=== PATIENT | female | born 1990 | race Caucasian/White ===

== ENCOUNTER 2021-03-17 07:36 | Emergency (ER) | payer BC ==
--- NOTE | 2021-03-17 08:03 | EDPHYS ---
Physician Documentation [facility] Name: Karo Saab Age: 30 yrs Sex: Female : 1990 Arrival Date: 03/17/2021 Time: 07:39 Bed 6 Private MD: ED Physician Cruzito Mei HPI: 03/17 07:57 This 30 yrs old Female presents to ER via Ambulatory with complaints of Ear rn Pain. 07:57 The patient presents with pain, moderate. The complaints affect the right ear and left rn ear. 07:57 Onset: The symptoms/episode began/occurred 3 day(s) ago. Modifying factors: The rn symptoms are alleviated by nothing, the symptoms are aggravated by nothing. Associated signs and symptoms: Pertinent positives: Sinus pressure. Severity of symptoms: At their worst the symptoms were moderate in the emergency department the symptoms are unchanged. The patient has not experienced similar symptoms in the past. The patient has not recently seen a physician. Patient reports bilateral ear pain that began 3 days ago. Reports it started a few days earlier prior to trip to [place] with sore throat and some inflammation on the back of the throat. Denies any trauma to ears. Denies fever. Reports feels like there is pressure behind both ears and having trouble hearing. Denies any head injury. Denies headache or focal neurological complaints.. 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 Flu vaccine status is unknown. - Social history:: Smoking status: Patient reports the use of cigarette tobacco products, smokes one pack cigarettes per day. - Family history:: not pertinent. - Hospitalizations: : No recent hospitalization is reported. ROS: 07:57 Constitutional: Negative for fever, chills, and weight loss, Eyes: Negative for injury, rn pain, redness, and discharge, ENT: Positive for bilateral ear pain Neck: Negative for injury, pain, and swelling, Cardiovascular: Negative for chest pain, palpitations, and edema, Respiratory: Negative for shortness of breath, cough, wheezing, and pleuritic chest pain, Abdomen/GI: Negative for abdominal pain, nausea, vomiting, diarrhea, and constipation, Back: Negative for injury and pain, MS/Extremity: Negative for injury and deformity, Skin: Negative for injury, rash, and discoloration, Neuro: Negative for headache, weakness, numbness, tingling, and seizure. Exam: 07:57 Constitutional: This is a well developed, well nourished patient who is awake, alert, rn and in no acute distress. Head/Face: Normocephalic, atraumatic. Eyes: Periorbital areas with no swelling, redness, or edema. ENT: Tympanic membranes are normal and external auditory canals are clear. No stridor Neck: Trachea midline, no masses palpated, and no cervical lymphadenopathy. Supple, full range of motion without nuchal rigidity, or vertebral point tenderness. No Meningismus. Cardiovascular: Regular rate and rhythm. No pulse deficits. Respiratory: No increased work of breathing, no retractions or nasal flaring. Skin: Warm, dry with normal turgor. Normal color with no rashes, no lesions, and no evidence of cellulitis. Neuro: Awake and alert, GCS 15. Motor strength 5/5 in all extremities. Cerebellar exam normal. Normal gait. Vital Signs: 07:41 BP 165 / 122; Resp 17; Temp 97.6; Pulse Ox 99% ; Weight 122.47 kg; Height 5 ft. 7 in. ll1 (170.18 cm); Pain 7/10; 07:41 Body Mass Index 42.29 (122.47 kg, 170.18 cm) ll1 MDM: 07:48 Patient medically screened. rn 07:57 Differential diagnosis: otitis media, acute otalgia, cerumen impaction, serotympanum, rn Sinusitis. Data reviewed: vital signs, nurses notes, and as a result, I will discharge patient. Counseling: I had a detailed discussion with the patient and/or guardian regarding: the historical points, exam findings, and any diagnostic results supporting the discharge/admit diagnosis, the need for outpatient follow up, to return to the emergency department if symptoms worsen or persist or if there are any questions or concerns that arise at home. Special discussion: I discussed with the patient/guardian in detail that at this point there is no indication for admission to the hospital. It is understood, however, that if the symptoms persist or worsen the patient needs to return immediately for re-evaluation. Administered Medications: No medications were administered Disposition Summary: 03/17/21 08:02 Discharge Ordered Location: Home rn Problem: new rn Symptoms: are unchanged rn Condition: Stable rn Diagnosis - Otalgia, bilateral rn Followup: rn - With: Private Physician - When: As needed - Reason: Recheck today's complaints, Re-evaluation by your physician Discharge Instructions: - Discharge Summary Sheet rn - Earache, Adult rn Forms: - Medication Reconciliation Form rn - Thank You Letter rn - Antibiotic internal medicine physician assistant - Prescription Opioid Use rn Prescriptions: - Zithromax Z-José Antonio 250 mg Oral Tablet - take 1 tablet by ORAL route as directed for 5 days Day 1 - take two (2) tablets rn one time. Day 2, 3, 4 , 5 take one (1) tablet once daily.; 6 tablet; Refills: 0, Product Selection Permitted Signatures: Cruzito Mei MD MD rn Lewis, Lynsay, RN RN 1
--- NOTE | 2021-03-17 08:03 | ER ---
Nurse's Notes [facility] Name: Karo Saab Age: 30 yrs Sex: Female : 1990 Arrival Date: 03/17/2021 Time: 07:39 Bed 6 Private MD: Diagnosis: Otalgia, bilateral Presentation: 03/17 07:41 Chief complaint: Patient states: Bilateral ear pain since Monday after flight home from [address] Slight congestion. No known fever. Coronavirus screen: Vaccine status: Patient reports being unvaccinated. Client denies travel out of the [place] in the last 14 days. congestion, Client presents with at least one sign or symptom that may indicate coronavirus-19. Standard/surgical mask placed on the client. Ebola Screen: Patient denies travel to an Ebola-affected area in the 21 days before illness onset. Initial Sepsis Screen: Does the patient meet any 2 criteria? No. Patient's initial sepsis screen is negative. Does the patient have a suspected source of infection? Yes: Other: ear. Risk Assessment: Do you want to hurt yourself or someone else? Patient reports no desire to harm self or others. Onset of symptoms was March 14, 2021. 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 Flu vaccine status is unknown. - Social history:: Smoking status: Patient reports the use of cigarette tobacco products, smokes one pack cigarettes per day. - Family history:: not pertinent. - Hospitalizations: : No recent hospitalization is reported. Screenin:51 Abuse screen: Denies threats or abuse. Nutritional screening: No deficits noted. ap3 Tuberculosis screening: No symptoms or risk factors identified. Fall Risk None identified. Assessment: 07:49 General: Appears in no apparent distress. comfortable, Behavior is calm, cooperative, ap3 appropriate for age. Pain: Complains of pain in right ear and left ear Pain began suddenly, Monday during the flight home-upon descent into [place]. Neuro: Level of Consciousness is awake, alert, obeys commands, Oriented to person, place, time, situation, Speech is normal. Cardiovascular: Patient's skin is warm and dry. Respiratory: Airway is patent. EENT: Reports nasal congestion since the weekend. Vital Signs: 07:41 BP 165 / 122; Resp 17; Temp 97.6; Pulse Ox 99% ; Weight 122.47 kg; Height 5 ft. 7 in. ll1 (170.18 cm); Pain 11/21; 07:41 Body Mass Index 42.29 (122.47 kg, 170.18 cm) 1 ED Course: 07:39 Patient arrived in ED. as 07:40 Artie Humphries PA is PHCP. beth 07:40 Cruzito Mei MD is Attending Physician. [facility] 07:41 Arm band placed on. ll1 07:45 Triage completed. ll1 07:47 Patient placed in an exam room, on a stretcher. ll1 07:49 Lady Soliman, NASREEN is Primary Nurse. ap3 07:51 Patient has correct armband on for positive identification. Call light in reach. Pulse ap3 ox on. NIBP on. Door closed. Noise minimized. 08:10 No provider procedures requiring assistance completed. Patient did not have IV access ap3 during this emergency room visit. Administered Medications: No medications were administered Outcome: 08:02 Discharge ordered by . rn 08:10 Discharged to home ambulatory. ap3 08:10 Condition: good 08:10 Discharge instructions given to patient, Instructed on discharge instructions, follow up and referral plans. medication usage, Demonstrated understanding of instructions, follow-up care, medications, Prescriptions given X 1. 08:11 Patient left the ED. ap3 Signatures: Artie Humphries PA PA jmm Martinez, Amelia as Nieto, Roman, MD MD rn Prokisch, Amanda, RN RN ap3 Kamini Hensley RN RN [facility]
[2021-03-17 08:18] VITALS: BP 165/122; TEMP 97.6; O2SAT 99
== END 2021-03-17 08:11 | disposition home or self-care (01) ==
LOC: ER 07:36
DX: H92.03 Otalgia, bilateral (principal); F17.210 Nicotine dependence, cigarettes, uncomplicated; Z88.1 Allergy status to other antibiotic agents; Z88.8 Allergy status to other drugs, medicaments and biological substances
CPT/HCPCS: 99283

== ENCOUNTER → 2023-06-27 | Emergency (ER) | payer BC ==
[~2023-06-27] MED LIST: HYDROCODONE/APAP 10/325 TAB ONE; IBUPROFEN 400 MG TAB ONE; NA CHLORIDE 0.9% 1,000 ML ONE
[2023-06-27 05:13] LABS: Absolute Lymphocytes (CBC) 2.1 K/uL (0.7-4.9); Hematocrit 42.2 % (36.0-45.0); Lymphocytes % 12.9 % (15.3-44.8); MCV 88.5 fL (80-100); MPV 8.7 fL (7.6-11.3); Platelets 261 thou/uL (152-406); RBC Red Blood Cell Count 4.76 M/uL (3.86-4.86)
[2023-06-27 05:24] LABS: Urine Bacteria None Seen /HPF (<20); Urine Bilirubin NEGATIVE (Negative); Urine Blood 3+ (OVER) (Negative); Urine Clarity Turbid (Clear); Urine Color Yellow (Yellow); Urine Glucose NEGATIVE (Negative); Urine Mucus Slight /HPF (None Seen); Urine Protein TRACE (Negative); Urine RBC >50 /HPF (None Seen); Urine Urobilinogen Normal (Normal)
[2023-06-27 05:31] LABS: Albumin 3.3 g/dL (3.4-5.0); Bilirubin Total 0.2 mg/dL (0.2-1.0); Potassium 4.5 mEq/L (3.5-5.1); Protein, Total 7.1 g/dL (6.4-8.2)
--- NOTE | 2023-06-27 07:36 | EDPHYS ---
Physician Documentation [facility] Name: Karo Harrell Age: 33 yrs Sex: Female : 1990 Arrival Date: 06/27/2023 Time: 04:07 Bed 14 Private MD: ED Physician Edgardo Aly HPI: 06/27 04:28 This 33 yrs old Female presents to ER via Unassigned with complaints of sp4 Abdominal Pain. 04:28 History of cholecystectomy 06/21/2022. sp4 07:30 Patient at this time takes metronidazole, ciprofloxacin daily and hydrocodone PRN. sp4 20:21 Patient states she developed sharp right upper quadrant abdominal pain. Patient has had sp4 recent admission for acute cholecystitis which was determined to be a calculus cholecystitis and cholecystectomy 06/21/[address] Morris . 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 Flu vaccine is not up to date. - Social history:: Smoking status: Patient reports the use of cigarette tobacco products, denies chronic smoking, but will smoke occasionally. - Family history:: not pertinent. ROS: 20:19 Constitutional: Negative for fever, chills, and weight loss, Positive RUQ abdominal sp4 pain 20:19 All other systems are negative, Exam: 20:21 Constitutional: This is a well developed, well nourished patient who is awake, alert, sp4 and in no acute distress. Head/Face: Normocephalic, atraumatic. Eyes: Pupils equal round and reactive to light, extra-ocular motions intact. Lids and lashes normal. Conjunctiva and sclera are not injected. Cornea within normal limits. Periorbital areas with no swelling, redness, or edema. ENT: Nares patent. No nasal discharge, no septal abnormalities noted. Tympanic membranes are normal and external auditory canals are clear. Oropharynx with no redness, swelling, or masses, exudates, or evidence of obstruction, uvula midline. Mucous membranes moist. Neck: Trachea midline, no thyromegaly or masses palpated, and no cervical lymphadenopathy. Supple, full range of motion without nuchal rigidity, or vertebral point tenderness. Chest/axilla: Normal chest wall appearance and motion. Nontender with no deformity. No lesions are appreciated. Cardiovascular: Regular rate and rhythm with a normal S1 and S2. No gallops, murmurs, or rubs. Normal PMI, no JVD. No pulse deficits. Respiratory: Lungs have equal breath sounds bilaterally, clear to auscultation and percussion. No rales, rhonchi or wheezes noted. No increased work of breathing, no retractions or nasal flaring. Abdomen/GI: Soft, with normal bowel sounds. No distension or tympany. No guarding or rebound. Positive right upper quadrant tenderness recent postop incisions after cholecystectomy. Back: No spinal tenderness. No costovertebral tenderness. Skin: Warm, dry with normal turgor. Normal color with no rashes, no lesions, and no evidence of cellulitis. MS/ Extremity: Pulses equal, no cyanosis. Neurovascular intact. Full, normal range of motion. Neuro: Awake and alert, GCS 15, oriented to person, place, time, and situation. Cranial nerves II-XII grossly intact. Motor strength 5/5 in all extremities. Sensory grossly intact. Psych: Awake, alert, with orientation to person, place and time. Behavior, mood, and affect are within normal limits Vital Signs: 04:29 BP 118 / 54; Pulse 87; Resp 16; Temp 98.1(O); Pulse Ox 94% on R/A; Weight 120.2 kg (R); km8 Height 5 ft. 7 in. (R); Pain 8/10; 05:00 BP 131 / 79; Pulse 70; Resp 16; Pulse Ox 91% on R/A; km8 06:09 BP 136 / 83; Pulse 79; Resp 16; Pulse Ox 94% on R/A; km8 07:27 BP 141 / 81; Pulse 70; Resp 18; Pulse Ox 95% on R/A; db 04:29 Body Mass Index 41.50 (120.20 kg, 170.18 cm) km8 04:29 Pain Scale: Adult km8 Alton Coma Score: 04:37 Eye Response: spontaneous(4). Motor Response: obeys commands(6). Verbal Response: km8 oriented(5). Total: 15. MDM: 04:30 Patient medically screened. sp4 07:25 ED course: CLINICAL HISTORY: ABD PAIN COMPARISON: 06/19/2023. 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 FINDINGS: Lower lungs are clear. Abdomen: Liver is fatty in attenuation. There is no biliary dilatation. Cholecystectomy was performed. There is mild stranding within the cholecystectomy fossa. There is no associated postoperative fluid collection. The pancreas and spleen are normal in appearance. The adrenal glands and kidneys are unremarkable. Abdominal aorta is normal in course and caliber without aneurysm. There is no free air. There is no retroperitoneal adenopathy. Pelvis: There is no bowel obstruction. Urinary bladder is unremarkable. There is no free fluid. The uterus is normal in size. Appendix is normal. There is minimal air within the abdominal fat from presumed trocar placement. Skeleton: There are no acute osseous findings. No suspicious bony lesions. IMPRESSION: Expected postoperative appearance. No acute inflammatory process.. 07:31 Differential Diagnosis altered mental status, sepsis, flu. Data reviewed: vital signs, sp4 nurses notes, old medical records, lab test result(s), radiologic studies. Consideration of Admission/Observation Escalation of care including admission/observation considered. ED course: Patient has no signs of emergent findings on a CAT scan. Advise bedrest and clear liquid diet for the next 12 hours . Patient advised to continue ciprofloxacin and Flagyl also as needed hydrocodone. . 06/27 04:30 Order name: CBC with Diff; Complete Time: 07:25 sp4 06/27 04:30 Order name: CMP; Complete Time: 07:25 sp4 06/27 04:30 Order name: Lipase; Complete Time: 07:25 sp4 06/27 04:30 Order name: Test, Urine; Complete Time: 07:25 sp4 06/27 04:30 Order name: Urinalysis w/ reflexes; Complete Time: 07:25 sp4 06/27 04:38 Order name: CT Abd/Pelvis - IV Contrast Only sp4 06/27 04:30 Order name: IV Saline Lock; Complete Time: 04:53 sp4 06/27 04:30 Order name: Labs collected and sent; Complete Time: 04:53 sp4 Administered Medications: 05:00 Drug: NS 0.9% IV 1000 ml IV at 1 bolus Per protocol; 1000 mL bolus Route: IV; Rate: 1 km8 bolus; Site: right wrist; 07:55 Follow up: Response: No adverse reaction; IV Status: Completed infusion; IV Intake: db 1000ml 07:40 Drug: [place] PO 10 mg-325 mg 1 tabs PO once Route: PO; db 07:55 Follow up: Response: No adverse reaction db 07:40 Drug: Ibuprofen PO 800 mg PO once Route: PO; db 07:55 Follow up: Response: No adverse reaction db Disposition: 20:24 Chart complete. sp4 Disposition Summary: 06/27/23 07:36 Discharge Ordered Notes: Please continue all home medications as prescribed. Location: Home sp4 Problem: new sp4 Symptoms: have improved sp4 Condition: Stable sp4 Diagnosis - Upper abdominal pain, unspecified sp4 - Acute postoperative abdominal pain sp4 Followup: sp4 - With: Aleks Morris MD - When: 1 - 2 days - Reason: Recheck today's complaints Discharge Instructions: - Cholecystostomy, Care After sp4 - Discharge Summary Sheet km8 Forms: - Patient Portal Instructions sp4 Signatures: Dispatcher [employer] Yvette Keys RN RN Edgardo Bahena MD MD sp4 Christine Portillo RN RN km8
--- NOTE | 2023-06-27 07:36 | ER ---
Nurse's Notes [facility] Name: Karo Harrell Age: 33 yrs Sex: Female : 1990 Arrival Date: 06/27/2023 Time: 04:07 Bed 14 Private MD: Diagnosis: Upper abdominal pain, unspecified;Acute postoperative abdominal pain Presentation: 06/27 04:29 Chief complaint: Patient states: pt reports sharp pain under right breast starting km8 yesterday and getting worse; pt had cholecystectomy about 1 week ago; denies any other symptoms. Coronavirus screen: Client denies travel out of the [place] in the last 14 days. Ebola Screen: No symptoms or risks identified at this time. Initial Sepsis Screen: Does the patient meet any 2 criteria? No. Patient's initial sepsis screen is negative. Does the patient have a suspected source of infection? No. Patient's initial sepsis screen is negative. Risk Assessment: Do you want to hurt yourself or someone else? Patient reports no desire to harm self or others. Onset of symptoms was June 26, 2023. 04:29 Method Of Arrival: Ambulatory km8 04:29 Acuity: FLORENCIA 3 km8 Triage Assessment: 04:32 General: Appears in no apparent distress. comfortable, Behavior is calm, cooperative, km8 appropriate for age. Pain: Complains of pain in right breast Pain currently is 8 out of 10 on a pain scale. Quality of pain is described as sharp, Pain began gradually. EENT: No signs and/or symptoms were reported regarding the EENT system. Neuro: Level of Consciousness is awake, alert, obeys commands, Oriented to person, place, time, situation. Cardiovascular: Denies chest pain, shortness of breath, Capillary refill < 3 seconds Patient's skin is warm and dry. Respiratory: Airway is patent Respiratory effort is even, unlabored, Respiratory pattern is regular, symmetrical. GI: Abdomen is non-distended, Reports upper abdominal pain. : No signs and/or symptoms were reported regarding the genitourinary system. Derm: No signs and/or symptoms reported regarding the dermatologic system. Skin is intact, is healthy with good turgor, Skin is dry, Skin is pink, warm \T\ dry. normal, Skin temperature is warm. Musculoskeletal: No signs and/or symptoms reported regarding the musculoskeletal system. Circulation, motion, and sensation intact. Range of motion: intact in all extremities. 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 Flu vaccine is not up to date. - Social history:: Smoking status: Patient reports the use of cigarette tobacco products, denies chronic smoking, but will smoke occasionally. - Family history:: not pertinent. Screenin:37 [facility] ED Fall Risk Assessment (Adult) History of falling in the last 3 months, km8 including since admission No falls in past 3 months (0 pts) Confusion or Disorientation No (0 pts) Intoxicated or Sedated No (0 pts) Impaired Gait No (0 pts) Mobility Assist Device Used No (0 pt) Altered Elimination No (0 pt) Score/Fall Risk Level 0 - 2 = Low Risk Oriented to surroundings, Maintained a safe environment, Educated pt \T\ family on fall prevention, incl call for assistance when getting out of bed, Assessed \T\ reinforced patient's understanding of fall precautions. Abuse screen: Denies threats or abuse. Denies injuries from another. Nutritional screening: No deficits noted. Tuberculosis screening: No symptoms or risk factors identified. Assessment: 04:37 General: see triage notes/assessment. 8 05:40 Reassessment: Patient appears in no apparent distress at this time. No changes from km8 previously documented assessment. Patient and/or family updated on plan of care and expected duration. Pain level reassessed. Patient is alert, oriented x 3, equal unlabored respirations, skin warm/dry/pink. 06:13 Reassessment: Patient and/or family updated on plan of care and expected duration. Pain ha1 level reassessed. Patient is alert, oriented x 3, equal unlabored respirations, skin warm/dry/pink. back from CT. 07:06 Reassessment: Patient appears in no apparent distress at this time. No changes from km8 previously documented assessment. Patient and/or family updated on plan of care and expected duration. Pain level reassessed. Patient is alert, oriented x 3, equal unlabored respirations, skin warm/dry/pink. 07:40 Reassessment: Patient appears in no apparent distress at this time. Patient and/or db family updated on plan of care and expected duration. Pain level reassessed. Patient is alert, oriented x 3, equal unlabored respirations, skin warm/dry/pink. Neuro: Level of Consciousness is awake, alert, obeys commands, Oriented to person, place, time, situation. Respiratory: Airway is patent Respiratory effort is even, unlabored, Respiratory pattern is regular, symmetrical. Vital Signs: 04:29 BP 118 / 54; Pulse 87; Resp 16; Temp 98.1(O); Pulse Ox 94% on R/A; Weight 120.2 kg (R); km8 Height 5 ft. 7 in. (R); Pain 8/10; 05:00 BP 131 / 79; Pulse 70; Resp 16; Pulse Ox 91% on R/A; km8 06:09 BP 136 / 83; Pulse 79; Resp 16; Pulse Ox 94% on R/A; km8 07:27 BP 141 / 81; Pulse 70; Resp 18; Pulse Ox 95% on R/A; db 04:29 Body Mass Index 41.50 (120.20 kg, 170.18 cm) km8 04:29 Pain Scale: Adult km8 [place] Coma Score: 04:37 Eye Response: spontaneous(4). Motor Response: obeys commands(6). Verbal Response: km8 oriented(5). Total: 15. ED Course: 04:11 Patient arrived in ED. gm2 04:21 Edgardo Aly MD is Attending Physician. sp4 04:29 Christine Portillo, NASREEN is Primary Nurse. km8 04:32 Triage completed. km8 04:32 Arm band placed on right wrist. km8 04:37 Patient has correct armband on for positive identification. Placed in gown. Bed in low km8 position. Call light in reach. Side rails up X 1. Pulse ox on. NIBP on. 04:37 No provider procedures requiring assistance completed. Patient maintains SpO2 km8 saturation greater than 95% on room air. 04:53 CBC with Diff Sent. ha1 04:53 CMP Sent. ha1 04:53 Lipase Sent. ha1 04:53 Inserted saline lock: 22 gauge in right wrist, using aseptic technique. Blood collected.ha1 06:22 CT Abd/Pelvis - IV Contrast Only In Process Unspecified. EDMS 07:35 Aleks Morris MD is Referral Physician. sp4 07:53 Provided Education on: DISCHARGE. db 07:53 IV discontinued, intact, bleeding controlled, No redness/swelling at site. db Administered Medications: 05:00 Drug: NS 0.9% IV 1000 ml IV at 1 bolus Per protocol; 1000 mL bolus Route: IV; Rate: 1 km8 bolus; Site: right wrist; 07:55 Follow up: Response: No adverse reaction; IV Status: Completed infusion; IV Intake: db 1000ml 07:40 Drug: [place] PO 10 mg-325 mg 1 tabs PO once Route: PO; db 07:55 Follow up: Response: No adverse reaction db 07:40 Drug: Ibuprofen PO 800 mg PO once Route: PO; db 07:55 Follow up: Response: No adverse reaction db Medication: 04:37 VIS not applicable for this client. km8 Intake: 07:55 IV: 1000ml; Total: 1000ml. db Outcome: 07:36 Discharge ordered by . sp4 07:53 Discharged to home ambulatory, with family, db 07:53 Condition: stable 07:53 Discharge instructions given to patient, Instructed on discharge instructions, follow up and referral plans. 07:59 Patient left the ED. db Signatures: Dispatcher [employer] EDLA Jerilyn Ferrera RN RN ha1 Yvette Giles RN RN db Edgardo Aly MD MD 4 Anne Pickens 2 Christine Portillo RN RN km8 Corrections: (The following items were deleted from the chart) 06:16 06:13 Reassessment: Patient and/or family updated on plan of care and expected ha1 duration. Pain level reassessed. Patient is alert, oriented x 3, equal unlabored respirations, skin warm/dry/pink. ha1
[2023-06-27 08:08] VITALS: BP 141/81; TEMP 98.1; O2SAT 95
--- NOTE | 2023-06-27 10:25 | RAD REPORT ---
EXAM DESCRIPTION: CT ABDOMEN PELVIS WITH IV CONTRAST CLINICAL HISTORY: ABD PAIN COMPARISON: 06/19/2023. TECHNIQUE: CT ABDOMEN PELVIS WITH IV CONTRAST on 06/27/2023 4:38 AM [employer] This exam was performed according to our departmental dose-optimization program, which includes autom ated exposure control, adjustment of the mA and/or kV according to patient size and/or use of iterati ve reconstruction technique. FINDINGS: Lower lungs are clear. Abdomen: Liver is fatty in attenuation. There is no biliary dilatation. Cholecystectomy was performed . There is mild stranding within the cholecystectomy fossa. There is no associated postoperative flui d collection. The pancreas and spleen are normal in appearance. The adrenal glands and kidneys are un remarkable. Abdominal aorta is normal in course and caliber without aneurysm. There is no free air. There is no r etroperitoneal adenopathy. Pelvis: There is no bowel obstruction. Urinary bladder is unremarkable. There is no free fluid. The u terus is normal in size. Appendix is normal. There is minimal air within the abdominal fat from presu med trocar placement. Skeleton: There are no acute osseous findings. No suspicious bony lesions. IMPRESSION: Expected postoperative appearance. No acute inflammatory process. Electronically signed by: Willard Wong MD 06/27/2023 06:47 AM [employer] Due to temporary technical issues with the PACS/Fluency reporting system, reports are being signed by the in house radiologist without review as a courtesy to ensure prompt reporting. The interpreting r adiologist is fully responsible for the content of the report.
== END ==
LOC: ER 04:07
DX: G89.18 Other acute postprocedural pain (principal); F17.210 Nicotine dependence, cigarettes, uncomplicated; Z88.1 Allergy status to other antibiotic agents
CPT/HCPCS: 85025; 81001; 36415; 81025; 83690; 80053; 74177; Q9967; J7030